=== PATIENT | female | born 1995 | race Caucasian/White ===

== ENCOUNTER 2023-08-03 21:16 | Emergency (ER) | payer MEDICAID ==
[2023-08-03] MEDS ORDERED: Ondansetron PF 4 MG/2 ML Vial ONE (21:56)
[2023-08-03 22:03] LABS: #Monocytes 0.6 10x3/uL (0.0-1.1); #Neutrophils 13.5 10x3/uL (1.5-8.4); %Basophils 0.2 % (0.0-2.0); %Eosinophils 0.1 % (0.0-6.0); %Monocytes 4.1 % (0.0-10.0); %Neutrophils 88.4 % (40.0-75.0); Hematocrit 35.3 % (34.9-44.5); Mean Corpuscular Hemoglobin 30.2 pg (27.0-33.0); Mean Corpuscular Volume 88.9 fl (81.6-98.3); Mean Platelet Volume 8.3 fl (7.4-10.4); Platelet Count 362 10x3/uL (150-450); RBC Distribution Width 12.6 % (11.5-14.5); Red Blood Cell (RBC) Count 3.97 10x6/uL (3.90-5.03); White Blood Cell (WBC) Count 15.3 10x3/uL (3.5-10.5)
[2023-08-03 22:18] LABS: ALT (SGPT) 9 U/L (8-55); AST (SGOT) 8 U/L (5-34); Albumin 3.7 g/dL (3.5-5.0); Alkaline Phosphatase 73 U/L (40-110); Anion Gap 14 mmol/L (10-20); BUN (Urea Nitrogen) 8 mg/dL (7.0-18.7); Bilirubin, Total 0.5 mg/dL (0.2-1.2); Calc. Creatinine Clearance 0 mL/min (70-130); Calcium 8.7 mg/dL (7.8-10.44); Carbon Dioxide 21 mmol/L (22-29); Chloride 101 mmol/L (98-107); Estimated GFR 128; Globulin 3.4 g/dL (2.4-3.5); Glucose 111 mg/dL (70-105); Lipase 9 U/L (8-78); Potassium 3.5 mmol/L (3.5-5.1); Protein, Total 7.1 g/dL (6.0-8.3); Sodium 132 mmol/L (136-145)
[2023-08-03 22:44] LABS: Influenza A by NAA Not Detected (NotDetected); Influenza B by NAA Not Detected (NotDetected); SARS-CoV-2 NAA Rapid Test Not Detected (NotDetected)
== END 2023-08-03 23:05 | disposition home or self-care (01) ==
LOC: CSHERS 21:16
DX: A08.4 Viral intestinal infection, unspecified (principal); E86.0 Dehydration
CPT/HCPCS: 80053; 83690; 85025; 96361; 96374; J2405

== ENCOUNTER 2023-10-27 04:17 | Inpatient (IN) | payer MEDICAID ==
[2023-10-27] MEDS ORDERED: Promethazine HCl 25 MG/ML VIAL IM PRN ×2 (05:10→07:17)
[2023-10-27] MEDS ORDERED: Misoprostol 200 MCG TAB PR PRN (05:10)
[2023-10-27] MEDS ORDERED: fentaNYL 50 mcg/mL 1 mL Vial SLOW IVP PRN (05:10)
[2023-10-27] MEDS ORDERED: Carboprost 250 MCG/ML AMP IM PRN (05:10)
[2023-10-27] MEDS ORDERED: hydrALAZINE 20 MG/ML VIAL SLOW IVP PRN ×2 (05:10→15:09)
[2023-10-27] MEDS ORDERED: Tranexamic Acid 1,000 MG/10 ML VIAL IVP PRN (05:10)
[2023-10-27] MEDS ORDERED: Docusate 100 MG CAP PO PRN (05:10)
[2023-10-27] MEDS ORDERED: Methylergonovine 0.2 MG/ML VIAL IM PRN (05:10)
[2023-10-27] MEDS ORDERED: Diphenoxylate HCl/Atropine Tablet PO PRN (05:10)
[2023-10-27] MEDS ORDERED: Acetaminophen 500 MG TAB PO PRN (05:10)
[2023-10-27] MEDS ORDERED: Lidocaine 1% (PF) 30 ML VIAL SC PRN (05:10)
[2023-10-27] MEDS ORDERED: Ondansetron PF 4 MG/2 ML Vial IVP PRN ×2 (05:10→15:09)
[2023-10-27] MEDS ORDERED: Oxytocin 30 units/NS 500 ML 500 ML IV SCH ×2 (05:15)
[2023-10-27] MEDS: Lactated Ringer's 1,000 ML IV SCH (05:16)
[2023-10-27 05:54] LABS: Red Blood Cell (RBC) Count 4.07 10x6/uL (3.90-5.03); White Blood Cell (WBC) Count 12.5 10x3/uL (3.5-10.5)
[2023-10-27 05:55] LABS: Hematocrit 35.4 % (34.9-44.5); Hemoglobin 12.1 g/dL (12.0-15.5); Mean Corpuscular HGB CONC 34.2 g/dL (32.0-36.0); Mean Corpuscular Hemoglobin 29.7 pg (27.0-33.0); Mean Platelet Volume 9.1 fl (7.4-10.4); Platelet Count 339 10x3/uL (130-400); RBC Distribution Width 13.1 % (11.5-14.5)
[2023-10-27] MEDS: Penicillin G Potassium 5 MILL.UNITS in Sodium Chloride 0.9% 100 ML IVPB SCH (06:07)
[2023-10-27 06:13] LABS: HBsAg Index 0.22 S/CO (0-0.99); Hep B Surf Ag - L&D Non-Reactive S/CO (NonReactive); Syphilis Antibody Nonreactive (Nonreactive); Syphilis Antibody Index 0.07 S/CO (<1.00 Non-Reactive)
[2023-10-27 06:33] LABS: HIV (1/2) Antibody/Antigen Non-Reactive (NonReactive); HIV 1/2 INDEX 0.07 S/CO (<1.00)
[2023-10-27] MEDS ORDERED: ePHEDrine Sulfate 50 MG/10 ML VIAL SLOW IVP PRN (07:17)
[2023-10-27] MEDS ORDERED: diphenhydrAMINE 50 MG/ML VIAL IVP PRN (07:17)
[2023-10-27] MEDS ORDERED: Naloxone HCl 0.4 mg/ml Vial IVP PRN ×2 (07:17)
[2023-10-27] MEDS ORDERED: Lactated Ringer's 500 ML IV PRN (07:17)
[2023-10-27] MEDS ORDERED: Moisturizing Cream (Eucerin) 113 GM JAR TOP PRN (07:17)
[2023-10-27] MEDS ORDERED: Acetaminophen 325 MG TAB PO PRN (07:17)
[2023-10-27] MEDS ORDERED: fentaNYL 2 mcg/Ropivacaine 0.2% Epidural 100 ML CADD EPIDURAL SCH (07:30)
[2023-10-27] MEDS: Ondansetron PF 4 MG/2 ML Vial IVP PRN (07:30)
[2023-10-27] MEDS ORDERED: Communication Order-Pharmacy FS SCH (07:30)
[2023-10-27] MEDS: fentaNYL/Ropivacaine Epidural 100 ML ONE (07:31)
[2023-10-27 07:56] VITALS: BMI 34.2
[2023-10-27] MEDS: fentaNYL/Ropivacaine Epidural 0 ML ONE (07:57)
[2023-10-27] MEDS ORDERED: Bupivacaine/Epinephrine 0.25% 30 ML VIAL ONE (08:00)
[2023-10-27] MEDS ORDERED: Penicillin G 2.5 MILL.units 2.5 MILL.UNITS in Premix 1 BAG IVPB SCH (09:15)
[2023-10-27] MEDS ORDERED: Milk Of Magnesia 30 ML UDCUP PO PRN (15:09)
[2023-10-27] MEDS ORDERED: Bisacodyl 10 MG SUPP PR PRN (15:09)
[2023-10-27] MEDS ORDERED: Preparation H Ointment 28 GM TUBE PR PRN (15:09)
[2023-10-27] MEDS ORDERED: diphenhydrAMINE 25 MG CAP PO PRN (15:09)
[2023-10-27] MEDS ORDERED: Boostrix 0.5 ML (Tdap) VIAL (>/=7 yrs of age) IM ONE (15:09)
[2023-10-27] MEDS ORDERED: Lanolin Ointment 7 GM TUBE TOP PRN (15:09)
[2023-10-27] MEDS: Acetaminophen 500 MG TAB PO SCH ×2 (18:14→23:25)
[2023-10-27] MEDS: traMADol HCl 50 MG TAB PO PRN (19:25)
[2023-10-27] MEDS: Ferrous Sulfate 325 MG TAB PO SCH (19:30)
[2023-10-27] MEDS: Ibuprofen 800 MG TAB PO SCH (21:05)
[2023-10-27] MEDS: Docusate 100 MG CAP PO SCH (21:05)
[2023-10-28] MEDS: Prenatal Vitamin 1 TAB PO SCH (08:45)
[2023-10-29 07:34] VITALS: BP 124/81; TEMP 98
== END 2023-10-29 12:20 | disposition home or self-care (01) | DRG 807 ==
LOC: CSHLD/OP 04:17 → CSHLD 04:58 → CSHPP 17:15
PROVIDERS: ADMIT Obstetrics & Gynecology; ATTEND Obstetrics & Gynecology
PROC: 10E0XZZ Delivery of Products of Conception, External Approach (ICD-10-PCS; principal; 2023-10-27)
PROC: 0KQM0ZZ Repair Perineum Muscle, Open Approach (ICD-10-PCS; 2023-10-27)
PROC: 10H07YZ Insertion of Other Device into Products of Conception, Via Natural or Artificial Opening (ICD-10-PCS; 2023-10-27)
DX: O99.324 Drug use complicating childbirth (principal); Z37.0 Single live birth; O70.1 Second degree perineal laceration during delivery; Z88.5 Allergy status to narcotic agent; Z3A.39 39 weeks gestation of pregnancy; F12.90 Cannabis use, unspecified, uncomplicated
CPT/HCPCS: 51702; 76815; 85027; 86762; 86780; 86850; 86900; 86901; 87340; 87389; 99285; J2405; J2540; J3490; J7120